=== PATIENT | female | born 1945 | race Caucasian/White ===

== ENCOUNTER 2016-12-06 08:54 | Day surgery (SDC) | payer MEDICARE, OTHER ==
[2016-11-26 20:23] LABS: HEMOGLOBIN 11.9 g/dL (12.0-16.0)
[2016-11-26 20:30] LABS: HEMATOCRIT 37.6 % (36.0-48.0)
[2016-11-26 20:37] LABS: CALCIUM, SERUM 8.9 MG/DL (8.5-10.4); CHLORIDE, SERUM 104 MMOL/L (96-112); CREATININE 0.99 MG/DL (0.55-1.02); GFR AFRICAN AMERICAN 67 ML/MIN (>=60); GFR NON AFRICAN AMERICAN 58 ML/MIN (>=60); GLUCOSE, SERUM 85 MG/DL (60-99); POTASSIUM, SERUM 4.8 MMOL/L (3.5-5.3); SODIUM, SERUM 139 MMOL/L (135-148)
[2016-11-26 20:38] LABS: CO2 (CARBON DIOXIDE) 32 MMOL/L (24-34)
[2016-11-26 20:51] LABS: BUN (BLOOD UREA NITROGEN) 19 MG/DL (6-23)
[~2016-12-06] VITALS: Ht 162.6 cm; Wt 72.1 kg
--- NOTE | ~2016-12-06 | OP ---
Record Of Operation [facility] [address] [place]. [address] NAME: GUERRERO FOSTER : 47 STATUS : REG [facility] PAT#: [id number] AGE: 71 ADM/REG DATE : 12/06/16 MR#: [id number] REPORT SERV DATE: 12/07/16 DICTATED BY: DONIS MICHAEL DATE: 12/07/16 REPORT STATUS : Draft TRANSCRIBED BY: MODL DATE: 12/07/16 DATE OF PROCEDURE: 12/06/2016 PREOPERATIVE DIAGNOSIS: Subcutaneous mass on the left abdomen. POSTOPERATIVE DIAGNOSIS: Subcutaneous mass on the left abdomen. PROCEDURE PERFORMED: Excision of subcutaneous mass (probable lipoma) with additional contouring by liposuction. ANESTHESIA: General. ESTIMATED BLOOD LOSS: Minimal. DETAILS OF PROCEDURE: After informed consent was obtained, the patient was taken to the operating room and placed supine in the position on the OR table. General anesthesia was induced with LMA intubation. The patient's abdomen and surrounding areas were prepped and draped in usual sterile manner. She had been marked preoperatively. Preop markings were confirmed. The patient had a subcutaneous mass/fullness of the left abdomen measuring approximately 17 cm transversely and approximately 8 cm in the vertical dimension and approximately 4 to 5 cm in thickness that was asymmetrical with the other side. The plan was for excision of the central mound of excess tissue and then feathering with liposuction. Local anesthetic was injected and then an incision was made over the prominence of the mass. Dissection was then carried out through the tissue to the Khari's fascial layer. Dissection was carried out deep to Khari's fascia defining the excess fatty tissue mass. This was then excised with electrocautery and sent to Pathology. Additional undermining was then performed and de-fatting performed sharply with scissors to thin out the area and remove additional fatty tissue excess. The mass is not seen well defined at all and did not have a distinct border or capsule. Then, small liposuction cannulas were used to feather out and blend to prevent a step-off for contour irregularity and provide symmetry with the right side of the abdomen. A small amount on the right side of liposuction was performed for symmetry as well removing approximately 100 mL total. Then, a 15 round Reynold drain was brought out through a separate stab incision and sutures to the skin with 2-0 silk. Hemostasis was assured after irrigation. Closure was performed in a layered fashion with 3- 0 Monocryl for the deep layer and then 4-0 Monocryl layered skin closure. Sterile dressings were applied. She was placed in postoperative garment and taken to PACU in stable condition. CC/KENNEDY Donis Michael M.D. / [id number] Record Of Operation [address] [address] NAME: GUERRERO FOSTER : 47 STATUS : REG [facility]#: [id number] AGE: 71 ADM/REG DATE : 12/06/16 MR#: [id number] REPORT SERV DATE: 12/07/16 DICTATED BY: DONIS MICHAEL DATE: 12/07/16 REPORT STATUS : Draft TRANSCRIBED BY: KENNEDY DATE: 12/07/16 CC: Joaquin Andrade M.D.
[~2016-12-06 08:54] MED LIST: AMB10 PO; ASAB PO; HCTZ25B; LIPITOR10 PO; LOP25 PO; MULTIPLE VIT PO; NORCO1 TA1 PO; OS500+D PO; PRILOSEC40 MG PO; PRIN2.5 PO
== END 2016-12-06 23:59 | disposition home health service (06) ==
LOC: MSC 08:54
PROVIDERS: Plastic Surgery
PROC: 0JB80ZZ Excision of Abdomen Subcutaneous Tissue and Fascia, Open Approach (ICD-10-PCS; principal; 2016-12-06 11:00)
DX: E65 Localized adiposity (principal); I25.10 Atherosclerotic heart disease of native coronary artery without angina pectoris; I10 Essential (primary) hypertension; E78.00 Pure hypercholesterolemia, unspecified; M19.90 Unspecified osteoarthritis, unspecified site; K21.9 Gastro-esophageal reflux disease without esophagitis; J45.909 Unspecified asthma, uncomplicated; Z95.5 Presence of coronary angioplasty implant and graft; Z87.891 Personal history of nicotine dependence; Z96.653 Presence of artificial knee joint, bilateral; Z88.5 Allergy status to narcotic agent; Z91.012 Allergy to eggs; Z90.710 Acquired absence of both cervix and uterus; Z98.41 Cataract extraction status, right eye; Z98.42 Cataract extraction status, left eye; Z98.890 Other specified postprocedural states; Z79.899 Other long term (current) drug therapy
CPT/HCPCS: 80048; 85014; 85018; 88304; 93005; A9270-GY; J0690; J2405; J3010